=== PATIENT | female | born 1960 | race Hispanic/Latino ===

== ENCOUNTER 2017-10-07 16:04 | Emergency (ER) | payer OTHER | END 2017-10-07 18:53 | disposition home or self-care (01) | LOC: EDH 16:04 | DX: E11.39 Type 2 diabetes mellitus with other diabetic ophthalmic complication (principal); H40.9 Unspecified glaucoma; E78.5 Hyperlipidemia, unspecified; I10 Essential (primary) hypertension ==

== ENCOUNTER 2018-08-13 20:10 | Emergency (ER) | payer OTHER ==
[2018-08-13] MEDS ORDERED: SULFAMETHOX-TMP DS 800/160 TAB ONE (21:22)
[2018-08-13] MEDS ORDERED: HYDROCODONE/ACETAMINOPHEN 10/325 MG TAB ONE (21:22)
== END 2018-08-13 22:11 | disposition home or self-care (01) ==
LOC: EDH 20:10
DX: L03.032 Cellulitis of left toe (principal); I10 Essential (primary) hypertension; E78.5 Hyperlipidemia, unspecified; E11.9 Type 2 diabetes mellitus without complications; Z90.49 Acquired absence of other specified parts of digestive tract

== ENCOUNTER 2022-09-07 19:22 | Emergency (ER) | payer OTHER ==
[~2022-09-07] VITALS: Ht 160 cm; Wt 81.6 kg
[2022-09-07] MEDS ORDERED: MORPHINE 4 MG SYG IVP ONE (20:00)
[2022-09-07] MEDS ORDERED: ONDANSETRON 4MG INJ IVP ONE (20:00)
[2022-09-07] MEDS ORDERED: KETOROLAC 15MG/ML VIAL (15MG/ML) IV ONE (20:30)
[2022-09-07] MEDS ORDERED: ACET-2079 PO (20:35)
[2022-09-07] MEDS ORDERED: IBUP-2070 PO (20:35)
[2022-09-07 20:51] VITALS: BP 151/78
== END 2022-09-07 21:14 | disposition home or self-care (01) ==
LOC: EDH 19:22
DX: S52.512A Displaced fracture of left radial styloid process, initial encounter for closed fracture (principal); I10 Essential (primary) hypertension; E78.00 Pure hypercholesterolemia, unspecified; E03.9 Hypothyroidism, unspecified; W01.0XXA Fall on same level from slipping, tripping and stumbling without subsequent striking against object, initial encounter; Y93.89 Activity, other specified; Y92.89 Other specified places as the place of occurrence of the external cause; Y99.8 Other external cause status
CPT/HCPCS: 99284; 96374; 29105; 96375; 73100; 73090; J2405; J2270; J1885

== ENCOUNTER 2024-04-13 06:51 | Emergency (ER) | payer BC ==
[~2024-04-13] VITALS: Ht 162.6 cm; Wt 89.8 kg
[~2024-04-13 06:51] MED LIST: ACET-2079 PO; IBUP-2070 PO
[2024-04-13 06:52] VITALS: BP 188/92; PULSE 82; RESP 16; TEMP 97
[2024-04-13] MEDS ORDERED: SULF1TAB42 PO (08:00)
== END 2024-04-13 08:28 | disposition home or self-care (01) ==
LOC: EDH 06:51
DX: S90.414A Abrasion, right lesser toe(s), initial encounter (principal); E11.9 Type 2 diabetes mellitus without complications; E78.00 Pure hypercholesterolemia, unspecified; I10 Essential (primary) hypertension; I25.10 Atherosclerotic heart disease of native coronary artery without angina pectoris; M19.90 Unspecified osteoarthritis, unspecified site; Z98.890 Other specified postprocedural states; X58.XXXA Exposure to other specified factors, initial encounter; Y93.89 Activity, other specified; Y92.89 Other specified places as the place of occurrence of the external cause; Y99.8 Other external cause status

== ENCOUNTER 2024-05-03 21:24 | Emergency (ER) | payer BC ==
[~2024-05-03] VITALS: Ht 160 cm; Wt 88.9 kg
[~2024-05-03 21:24] MED LIST changes: +SULF1TAB42 PO
[2024-05-03] MEDS ORDERED: MELO-108 PO (23:08)
[2024-05-03] MEDS: ketOROlac 15MG/ML VIAL (15MG/ML) IM ONE (23:18)
[2024-05-03] MEDS: HYDROcodone/APAP 5/325 1 TAB TABLET PO ONE (23:18)
[2024-05-03 23:45] VITALS: BP 157/74; PULSE 68; RESP 18; TEMP 98.2; O2SAT 99
== END 2024-05-03 23:48 | disposition home or self-care (01) ==
LOC: EDH 21:24
DX: S66.812A Strain of other specified muscles, fascia and tendons at wrist and hand level, left hand, initial encounter (principal); E11.9 Type 2 diabetes mellitus without complications; E78.00 Pure hypercholesterolemia, unspecified; I10 Essential (primary) hypertension; I25.10 Atherosclerotic heart disease of native coronary artery without angina pectoris; M19.90 Unspecified osteoarthritis, unspecified site; Z90.49 Acquired absence of other specified parts of digestive tract; Z79.899 Other long term (current) drug therapy; Z98.890 Other specified postprocedural states; X58.XXXA Exposure to other specified factors, initial encounter; Y93.89 Activity, other specified; Y92.89 Other specified places as the place of occurrence of the external cause; Y99.8 Other external cause status
CPT/HCPCS: 99284; 73110; 96372; J1885